=== PATIENT | female | born 1990 | race Caucasian/White ===

== ENCOUNTER 2021-06-17 11:29 | Inpatient (IN) ==
[2021-06-17] MEDS ORDERED: NOREPINEPHRINE 4 MG/4 ML VIAL IV ONE (11:42)
[2021-06-17] MEDS ORDERED: SODIUM CHLORIDE 0.9% 1,000 ML IV STA (11:45)
[2021-06-17] MEDS ORDERED: LACTATED RINGERS 1,000 ML IV ONE (11:45)
[2021-06-17] MEDS: NOREPINEPHRINE 8 MG in SODIUM CHLORIDE 0.9% 242 ML IV PRN (11:46)
[2021-06-17 11:48] LABS: ABG Base Excess -27.3 MMOL/L (-2.5-2.5); ABG HCO3 6.7 MMOL/L (20-26); ABG Oxygen Saturation 98.5 % (95-100); ABG PCO2 53.9 MM HG (35-48)
[2021-06-17] MEDS ORDERED: SODIUM BICARBONATE 50 MEQ/50 ML VIAL IV ONE ×2 (11:52→11:53)
[2021-06-17] MEDS ORDERED: SODIUM BICARBONATE 50 MEQ/50 ML VIAL IV STA (11:55)
[2021-06-17 11:59] LABS: Basophils # 0.1 10*3/uL (0.0-0.2); Basophils % 0.9 % (0.0-0.8); Eosinophils % 0.4 % (0.00-10.9); Hematocrit 45.1 VOL% (35.7-47.0); Hemoglobin 13.7 GM/DL (12.0-16.0); Immature Granulocytes % 1.7 %; Immature Granulocytes Absolute 0.17 #; Lymphocytes # 4.3 10*3/uL (1.4-4.0); Lymphocytes % 42.8 % (21.3-54.2); Mean Corpuscular HGB Conc 30.4 GM/DL (32-36); Mean Corpuscular Volume 106.1 FL (87-102); Mean Platelet Volume 11.9 FL (9.6-12.0); Monocytes % 6.2 % (1.7-12.7); Platelet Count 311 T/CUMM (130-400); Red Blood Count 4.25 MC/CUMM (3.8-5.5); Red Cell Distribution Width 12.1 % (9.3-17.3); White Blood Count 9.9 T/CUMM (4-12)
[2021-06-17] MEDS ORDERED: MANNITOL 100 GM/500 ML BAG IV STA (12:25)
[2021-06-17 12:37] LABS: Atypical Lymphocytes Few
[2021-06-17 12:41] LABS: Alanine Aminotransferase 821 U/L (13-56); Albumin 4.2 G/DL (3.4-5.0); Alkaline Phosphatase 78 U/L (45-117); Aspartate Amino Transferase 1073 U/L (0-37); Blood Urea Nitrogen 21 MG/DL (7-18); Carbon Dioxide 9 MMOL/L (21-32); Estimated Glom Filtration Rate 36 ML/MIN; Glucose 197 MG/DL (74-106); Osmolality,Calculated 290.1 MOS/KG (273-304); Potassium 4.3 MMOL/L (3.5-5.1); Sodium 142 MMOL/L (136-145); Total Protein 7.7 G/DL (6.4-8.2)
[2021-06-17 13:11] LABS: INR 1.3; PT Patient Result 14.7 SECS (10.5-12.0); Partial Thromboplastin Time 28.3 SECS (23.9-33.8)
[2021-06-17 13:17] LABS: Barbiturates Screen,Urine Negative (Negative); Benzodiazepines Screen,Urine Negative (Negative); Cannabinoid Screen,Urine Positive (Negative); Opiate Screen,Urine Negative (Negative); Phencyclidine Screen,Urine Negative (Negative)
[2021-06-17] MEDS ORDERED: ALBUTEROL 2.5 MG/3 ML NEB RESP TX PRN (13:53)
[2021-06-17] MEDS ORDERED: ONDANSETRON 4 MG/2 ML VIAL IV PRN (13:53)
[2021-06-17] MEDS ORDERED: SODIUM CHLORIDE 0.9% 1,000 ML IV SCH (14:00)
[2021-06-17 14:22] VITALS: BP 130/80
[2021-06-17] MEDS ORDERED: CISATRACURIUM 200 MG in SODIUM CHLORIDE 0.9% 180 ML IV PRN (15:31)
[2021-06-17 15:45] LABS: CKMB % 2.8 %
[2021-06-17] MEDS ORDERED: HEPARIN/NACL 0.9% 2 UNITS/ML 1,000 UNIT/500 ML BAG IV ONE (15:46)
[2021-06-17 15:52] LABS: INR 1.3; PT Patient Result 14.3 SECS (10.5-12.0); Partial Thromboplastin Time 25.8 SECS (23.9-33.8)
[2021-06-17] MEDS: fentaNYL INJ 1,250 MCG in SODIUM CHLORIDE 0.9% 225 ML IV PRN (16:00)
[2021-06-17] MEDS: MIDAZOLAM 100 MG in SODIUM CHLORIDE 0.9% 80 ML IV SCH (16:00)
[2021-06-17] MEDS: VALPROIC ACID INJ 500 MG in SODIUM CHLORIDE 0.9% 100 ML IV SCH (16:13)
[2021-06-17 16:48] LABS: Bilirubin,Urine Negative (Negative); Blood, Urine Large mg/dL (Negative); Glucose,Urine (UA) 50 mg/dL (Negative); Ketones,Urine 20 mg/dL (Negative); Mucus,Urine Occasional /LPF (Occasional); Nitrite,Urine Negative (Negative); Protein,Urine 30 MG/DL; RBC,Urine 6 /HPF (0-4); Urine Appearance CLEAR (Clear); Urine Color Straw (Yellow); Urine Specific Gravity 1.027 (1.001-1.035); Urine Urobilinogen < 2.0 EU/DL (0.2-1.0)
[2021-06-17] MEDS: DEXAMETHASONE 4 MG/1 ML VIAL IV SCH ×2 (16:49→21:09)
[2021-06-17] MEDS: PANTOPRAZOLE 40 MG VIAL IV SCH (16:49)
[2021-06-17] MEDS ORDERED: INFLUENZA VIRUS VACCINE 0.5 ML SYRINGE IM ONE (17:01)
[2021-06-17] MEDS: INSULIN REGULAR 100 UNIT/ML IV SCH ×2 (17:05→21:00)
[2021-06-17] MEDS: SODIUM CHLORIDE 0.9% 1,000 ML IV SCH (19:50)
[2021-06-17 20:34] LABS: Basophils # 0.1 10*3/uL (0.0-0.2); Basophils % 0.3 % (0.0-0.8); Hemoglobin 14.2 GM/DL (12.0-16.0); Immature Granulocytes % 0.9 %; Immature Granulocytes Absolute 0.34 #; Lymphocytes # 0.9 10*3/uL (1.4-4.0); Lymphocytes % 2.3 % (21.3-54.2); Mean Corpuscular HGB Conc 32.3 GM/DL (32-36); Mean Corpuscular Volume 96.3 FL (87-102); Mean Platelet Volume 10.9 FL (9.6-12.0); Monocytes % 4.7 % (1.7-12.7); Neutrophils % 91.8 % (38.7-73.9); Platelet Count 324 T/CUMM (130-400); Red Blood Count 4.57 MC/CUMM (3.8-5.5); Red Cell Distribution Width 12.4 % (9.3-17.3); White Blood Count 38.5 T/CUMM (4-12)
[2021-06-17 21:01] LABS: Band Neutrophils 8 % (0-10); Burr Cells Slight; Lymphocytes 4 % (20-55); Segmented Neutrophils 85 % (50-85); Total Cells Counted 100
[2021-06-17 21:02] LABS: CKMB % 3.1 %; Osmolality,Calculated 295.7 MOS/KG (273-304); Ovalocytes Slight; Potassium 3.6 MMOL/L (3.5-5.1)
[2021-06-17 21:04] LABS: Platelet Estimate Adequate
[2021-06-17 21:07] LABS: INR 1.6; PT Patient Result 17.2 SECS (10.5-12.0); Partial Thromboplastin Time 27.9 SECS (23.9-33.8)
[2021-06-17] MEDS ORDERED: hydrALAZINE 20 MG/1 ML VIAL IV ONE (21:15)
[2021-06-17] MEDS: ENOXAPARIN 40 MG/0.4 ML SYRINGE SUBCUT SCH (21:28)
[2021-06-17] MEDS ORDERED: SODIUM CHLORIDE 0.9% IV SCH (23:00)
[2021-06-17] MEDS ORDERED: MANNITOL IV SCH (23:00)
[2021-06-18] MEDS: INSULIN REGULAR 100 UNIT/ML IV SCH ×8 (00:42→22:47)
[2021-06-18] MEDS: VALPROIC ACID INJ 500 MG in SODIUM CHLORIDE 0.9% 100 ML IV SCH ×2 (03:08→16:44)
[2021-06-18] MEDS: DEXAMETHASONE 4 MG/1 ML VIAL IV SCH ×4 (03:08→21:14)
[2021-06-18 03:35] LABS: Basophils % 0.1 % (0.0-0.8); Hematocrit 42.4 VOL% (35.7-47.0); Hemoglobin 14.2 GM/DL (12.0-16.0); Immature Granulocytes % 0.6 %; Immature Granulocytes Absolute 0.15 #; Lymphocytes # 0.9 10*3/uL (1.4-4.0); Lymphocytes % 3.4 % (21.3-54.2); Mean Corpuscular HGB Conc 33.5 GM/DL (32-36); Mean Corpuscular Volume 95.9 FL (87-102); Mean Platelet Volume 10.8 FL (9.6-12.0); Neutrophils % 92.9 % (38.7-73.9); Platelet Count 263 T/CUMM (130-400); Red Blood Count 4.42 MC/CUMM (3.8-5.5); Red Cell Distribution Width 12.6 % (9.3-17.3); White Blood Count 24.7 T/CUMM (4-12)
[2021-06-18 03:49] LABS: INR 1.7; PT Patient Result 18.2 SECS (10.5-12.0); Partial Thromboplastin Time 32.9 SECS (23.9-33.8)
[2021-06-18 03:59] LABS: Osmolality,Calculated 304.1 MOS/KG (273-304); Potassium 3.4 MMOL/L (3.5-5.1)
[2021-06-18 04:02] LABS: CKMB % 3.7 %; High Sensitive Troponin I* 2698.2 ng/L (0-54)
[2021-06-18 04:09] LABS: Band Neutrophils 2 % (0-10); Lymphocytes 4 % (20-55); Platelet Estimate Adequate; Segmented Neutrophils 90 % (50-85); Total Cells Counted 100
[2021-06-18] MEDS ORDERED: NOREPINEPHRINE 4 MG/4 ML VIAL IV ONE (04:20)
[2021-06-18] MEDS: NOREPINEPHRINE 8 MG in SODIUM CHLORIDE 0.9% 242 ML IV PRN ×2 (04:25→17:36)
[2021-06-18 04:53] LABS: ABG Base Excess -9.3 MMOL/L (-2.5-2.5); ABG HCO3 17.2 MMOL/L (20-26); ABG Oxygen Saturation 99.6 % (95-100); ABG PCO2 34.6 MM HG (35-48); ABG PH 7.289 (7.35-7.45); ABG TCO2 14.5 MMOL/L (23-27)
[2021-06-18] MEDS: MANNITOL IV SCH ×4 (05:12→21:14)
[2021-06-18] MEDS: POTASSIUM CHLORIDE RIDER 20 MEQ/100 ML PREMIX IV PRN ×2 (05:24→11:06)
[2021-06-18] MEDS: SODIUM CHLORIDE 0.9% 1,000 ML IV SCH ×2 (06:15→16:30)
[2021-06-18 09:49] LABS: Basophils # 0.1 10*3/uL (0.0-0.2); Basophils % 0.2 % (0.0-0.8); Hematocrit 42.8 VOL% (35.7-47.0); Hemoglobin 14.1 GM/DL (12.0-16.0); Immature Granulocytes % 0.8 %; Immature Granulocytes Absolute 0.29 #; Lymphocytes # 1.3 10*3/uL (1.4-4.0); Lymphocytes % 3.9 % (21.3-54.2); Mean Corpuscular HGB Conc 32.9 GM/DL (32-36); Mean Corpuscular Volume 95.3 FL (87-102); Mean Platelet Volume 10.8 FL (9.6-12.0); Monocytes % 2.1 % (1.7-12.7); Platelet Count 308 T/CUMM (130-400); Red Blood Count 4.49 MC/CUMM (3.8-5.5); Red Cell Distribution Width 12.7 % (9.3-17.3); White Blood Count 34.5 T/CUMM (4-12)
[2021-06-18 10:04] LABS: Calcium 8.3 MG/DL (8.5-10.1); Osmolality,Calculated 316.2 MOS/KG (273-304)
[2021-06-18 10:12] LABS: Band Neutrophils 5 % (0-10); Lymphocytes 6 % (20-55); Platelet Estimate Adequate; Segmented Neutrophils 88 % (50-85); Total Cells Counted 100
[2021-06-18 10:13] LABS: CKMB % 5.1 %
[2021-06-18 10:14] LABS: High Sensitive Troponin I* 2087.1 ng/L (0-54)
[2021-06-18 10:49] LABS: INR 1.5; PT Patient Result 16.7 SECS (10.5-12.0); Partial Thromboplastin Time 32.4 SECS (23.9-33.8)
[2021-06-18] MEDS ORDERED: POTASSIUM CHLORIDE RIDER 10 MEQ/100 ML PREMIX IV PRN (11:08)
[2021-06-18] MEDS: PANTOPRAZOLE 40 MG VIAL IV SCH (15:04)
[2021-06-18] MEDS ORDERED: EPINEPHrine 1 MG/10 ML SYRINGE ONE (15:14)
[2021-06-18 16:00] LABS: Basophils # 0.1 10*3/uL (0.0-0.2); Basophils % 0.1 % (0.0-0.8); Eosinophils # 0.1 10*3/uL (0.0-0.87); Eosinophils % 0.2 % (0.00-10.9); Hematocrit 39.4 VOL% (35.7-47.0); Hemoglobin 13.1 GM/DL (12.0-16.0); Immature Granulocytes Absolute 0.36 #; Lymphocytes # 2.1 10*3/uL (1.4-4.0); Lymphocytes % 5.9 % (21.3-54.2); Mean Corpuscular HGB Conc 33.2 GM/DL (32-36); Mean Corpuscular Volume 94.9 FL (87-102); Mean Platelet Volume 11.3 FL (9.6-12.0); Monocytes % 3.6 % (1.7-12.7); Neutrophils % 89.2 % (38.7-73.9); Platelet Count 318 T/CUMM (130-400); Red Blood Count 4.15 MC/CUMM (3.8-5.5); Red Cell Distribution Width 12.8 % (9.3-17.3); White Blood Count 35.2 T/CUMM (4-12)
[2021-06-18 16:11] LABS: INR 1.6; PT Patient Result 17.3 SECS (10.5-12.0); Partial Thromboplastin Time 31.8 SECS (23.9-33.8)
[2021-06-18 16:23] LABS: Calcium 8.1 MG/DL (8.5-10.1); Osmolality,Calculated 324.7 MOS/KG (273-304); Potassium 3.5 MMOL/L (3.5-5.1)
[2021-06-18] MEDS: MIDAZOLAM 100 MG in SODIUM CHLORIDE 0.9% 80 ML IV SCH (16:29)
[2021-06-18 16:30] LABS: Band Neutrophils 19 % (0-10); Metamyelocytes 1 %; Segmented Neutrophils 79 % (50-85); Total Cells Counted 100
[2021-06-18 16:31] LABS: Anisocytosis Slight; Burr Cells Few; Macrocytosis Slight; Poikilocytosis Few
[2021-06-18 16:32] LABS: CKMB % 6.1 %; High Sensitive Troponin I* 1747.8 ng/L (0-54); Platelet Estimate Normal
[2021-06-18 17:31] LABS: ABG Base Excess -11.3 MMOL/L (-2.5-2.5); ABG HCO3 15.7 MMOL/L (20-26); ABG Oxygen Saturation 99.6 % (95-100); ABG PCO2 22.5 MM HG (35-48); ABG PH 7.355 (7.35-7.45)
[2021-06-18] MEDS ORDERED: ACETAMINOPHEN 325 MG/10.15 ML UDCUP NG PRN (17:41)
[2021-06-18 17:50] LABS: Bilirubin,Total 0.4 MG/DL (0.20-1.00); Calcium 8.2 MG/DL (8.5-10.1); Osmolality,Calculated 330.3 MOS/KG (273-304); Total Protein 5.6 G/DL (6.4-8.2)
[2021-06-18 17:54] LABS: Potassium 2.4 MMOL/L (3.5-5.1)
[2021-06-18] MEDS: POTASSIUM CHLORIDE RIDER 20 MEQ/100 ML PREMIX IV SCH ×3 (18:26→23:41)
[2021-06-18] MEDS: DEXTROSE 5% 1,000 ML IV SCH (18:27)
[2021-06-18 21:10] LABS: Basophils # 0.1 10*3/uL (0.0-0.2); Basophils % 0.1 % (0.0-0.8); Eosinophils # 0.1 10*3/uL (0.0-0.87); Eosinophils % 0.1 % (0.00-10.9); Hematocrit 37.7 VOL% (35.7-47.0); Hemoglobin 12.5 GM/DL (12.0-16.0); Immature Granulocytes % 0.9 %; Immature Granulocytes Absolute 0.31 #; Lymphocytes # 2.5 10*3/uL (1.4-4.0); Lymphocytes % 7.5 % (21.3-54.2); Mean Corpuscular HGB Conc 33.2 GM/DL (32-36); Mean Corpuscular Volume 95.2 FL (87-102); Mean Platelet Volume 11.4 FL (9.6-12.0); Monocytes % 4.1 % (1.7-12.7); Neutrophils % 87.3 % (38.7-73.9); Platelet Count 304 T/CUMM (130-400); Red Blood Count 3.96 MC/CUMM (3.8-5.5); White Blood Count 33.7 T/CUMM (4-12)
[2021-06-18] MEDS: ENOXAPARIN 40 MG/0.4 ML SYRINGE SUBCUT SCH (21:14)
[2021-06-18 21:23] LABS: Calcium 8.3 MG/DL (8.5-10.1); Osmolality,Calculated 335.2 MOS/KG (273-304); Potassium 2.9 MMOL/L (3.5-5.1)
[2021-06-18 21:30] LABS: INR 1.5; PT Patient Result 16.9 SECS (10.5-12.0); Partial Thromboplastin Time 32.2 SECS (23.9-33.8)
[2021-06-18 22:16] LABS: Band Neutrophils 3 % (0-10); Lymphocytes 9 % (20-55); Segmented Neutrophils 86 % (50-85); Total Cells Counted 100
[2021-06-18 22:18] LABS: Burr Cells 2+; Hypochromasia Slight; Platelet Estimate Normal; Reactive Lymphocytes 1+
[2021-06-19] MEDS: fentaNYL INJ 1,250 MCG in SODIUM CHLORIDE 0.9% 225 ML IV PRN (00:25)
[2021-06-19] MEDS: INSULIN REGULAR 100 UNIT/ML IV SCH ×4 (00:44→06:36)
[2021-06-19] MEDS: NOREPINEPHRINE 8 MG in SODIUM CHLORIDE 0.9% 242 ML IV PRN ×3 (01:30→16:09)
[2021-06-19] MEDS: DEXAMETHASONE 4 MG/1 ML VIAL IV SCH ×4 (02:40→20:40)
[2021-06-19] MEDS: DEXTROSE 5% 1,000 ML IV SCH ×5 (02:40→23:00)
[2021-06-19 03:36] LABS: ABG Base Excess -8.8 MMOL/L (-2.5-2.5); ABG HCO3 13.8 MMOL/L (20-26); ABG Oxygen Saturation 98.8 % (95-100); ABG PCO2 22.1 MM HG (35-48); ABG PH 7.413 (7.35-7.45); ABG PO2 273.1 MM HG (80-95); ABG TCO2 14.5 MMOL/L (23-27)
[2021-06-19 03:38] LABS: Basophils # 0.1 10*3/uL (0.0-0.2); Basophils % 0.2 % (0.0-0.8); Eosinophils % 0.1 % (0.00-10.9); Hematocrit 36.8 VOL% (35.7-47.0); Hemoglobin 12.2 GM/DL (12.0-16.0); Immature Granulocytes % 1.3 %; Immature Granulocytes Absolute 0.51 #; Lymphocytes # 2.5 10*3/uL (1.4-4.0); Lymphocytes % 6.6 % (21.3-54.2); Mean Corpuscular HGB Conc 33.2 GM/DL (32-36); Mean Corpuscular Volume 95.6 FL (87-102); Mean Platelet Volume 11.9 FL (9.6-12.0); Neutrophils % 87.8 % (38.7-73.9); Platelet Count 278 T/CUMM (130-400); Red Blood Count 3.85 MC/CUMM (3.8-5.5); Red Cell Distribution Width 13.2 % (9.3-17.3)
[2021-06-19 03:46] LABS: INR 1.6; PT Patient Result 17.2 SECS (10.5-12.0); Partial Thromboplastin Time 37.3 SECS (23.9-33.8)
[2021-06-19 03:52] LABS: Calcium 8.4 MG/DL (8.5-10.1); Osmolality,Calculated 330.2 MOS/KG (273-304); Potassium 3.1 MMOL/L (3.5-5.1)
[2021-06-19 04:02] LABS: Alanine Aminotransferase 523 U/L (13-56); Albumin 2.6 G/DL (3.4-5.0); Alkaline Phosphatase 68 U/L (45-117); Aspartate Amino Transferase 345 U/L (0-37); Bilirubin,Indirect 0.3 MG/DL (0.0-1.0); Bilirubin,Total < 0.39 MG/DL (0.20-1.00); Total Protein 5.3 G/DL (6.4-8.2)
[2021-06-19 04:08] LABS: Band Neutrophils 3 % (0-10); Hypochromasia Slight; Lymphocytes 7 % (20-55); Platelet Estimate Adequate; Segmented Neutrophils 86 % (50-85); Total Cells Counted 100
[2021-06-19 04:09] LABS: Burr Cells Few
[2021-06-19] MEDS: VALPROIC ACID INJ 500 MG in SODIUM CHLORIDE 0.9% 100 ML IV SCH ×2 (04:47→15:39)
[2021-06-19 07:04] LABS: CKMB % 8.4 %
[2021-06-19 07:06] LABS: High Sensitive Troponin I* 1393.9 ng/L (0-54)
[2021-06-19] MEDS ORDERED: INSULIN REGULAR 100 UNIT/ML IV SCH (08:00)
[2021-06-19] MEDS: INSULIN REGULAR 100 UNIT/ML SUBCUT SCH ×4 (08:02→20:40)
[2021-06-19] MEDS ORDERED: POTASSIUM PHOSPHATE 30 MMOL in SODIUM CHLORIDE 0.9% 250 ML IV ONE (08:35)
[2021-06-19 08:46] LABS: ABG HCO3 20.3 MMOL/L (20-26); ABG Oxygen Saturation 99.8 % (95-100); ABG PCO2 25.6 MM HG (35-48); ABG PH 7.445 (7.35-7.45); ABG TCO2 15.5 MMOL/L (23-27)
[2021-06-19] MEDS: MANNITOL IV SCH ×2 (09:18→20:45)
[2021-06-19 13:51] LABS: Alanine Aminotransferase 472 U/L (13-56); Albumin 2.6 G/DL (3.4-5.0); Alkaline Phosphatase 80 U/L (45-117); Aspartate Amino Transferase 225 U/L (0-37); Bilirubin,Total < 0.39 MG/DL (0.20-1.00); Blood Urea Nitrogen 15 MG/DL (7-18); Calcium 7.9 MG/DL (8.5-10.1); Carbon Dioxide 21 MMOL/L (21-32); Estimated Glom Filtration Rate 41 ML/MIN; Glucose 248 MG/DL (74-106); Osmolality,Calculated 330.2 MOS/KG (273-304); Total Protein 5.6 G/DL (6.4-8.2)
[2021-06-19 14:01] LABS: Sodium 163 MMOL/L (136-145)
[2021-06-19] MEDS: PANTOPRAZOLE 40 MG VIAL IV SCH (15:50)
[2021-06-19] MEDS: ENOXAPARIN 40 MG/0.4 ML SYRINGE SUBCUT SCH (20:40)
[2021-06-20] MEDS: INSULIN REGULAR 100 UNIT/ML SUBCUT SCH ×5 (00:30→17:27)
[2021-06-20] MEDS: VALPROIC ACID INJ 500 MG in SODIUM CHLORIDE 0.9% 100 ML IV SCH ×2 (03:10→15:33)
[2021-06-20] MEDS: DEXAMETHASONE 4 MG/1 ML VIAL IV SCH ×3 (03:14→15:34)
[2021-06-20 04:20] LABS: ABG Base Excess -3.5 MMOL/L (-2.5-2.5); ABG HCO3 21.5 MMOL/L (20-26); ABG Oxygen Saturation 99.4 % (95-100); ABG PCO2 32.8 MM HG (35-48); ABG PH 7.402 (7.35-7.45); ABG TCO2 18.3 MMOL/L (23-27)
[2021-06-20 04:35] LABS: Basophils # 0.1 10*3/uL (0.0-0.2); Basophils % 0.2 % (0.0-0.8); Hematocrit 34.1 VOL% (35.7-47.0); Immature Granulocytes % 5.5 %; Immature Granulocytes Absolute 1.99 #; Lymphocytes # 1.1 10*3/uL (1.4-4.0); Mean Corpuscular HGB Conc 32.3 GM/DL (32-36); Mean Corpuscular Volume 97.2 FL (87-102); Monocytes % 3.7 % (1.7-12.7); Neutrophils % 87.6 % (38.7-73.9); Platelet Count 166 T/CUMM (130-400); Red Blood Count 3.51 MC/CUMM (3.8-5.5); Red Cell Distribution Width 13.6 % (9.3-17.3); White Blood Count 36.4 T/CUMM (4-12)
[2021-06-20 04:36] LABS: Calcium 7.9 MG/DL (8.5-10.1); Osmolality,Calculated 339.5 MOS/KG (273-304); Potassium 3.9 MMOL/L (3.5-5.1)
[2021-06-20] MEDS: DEXTROSE 5% 1,000 ML IV SCH ×3 (04:36→16:52)
[2021-06-20 04:43] LABS: Alanine Aminotransferase 360 U/L (13-56); Albumin 2.4 G/DL (3.4-5.0); Alkaline Phosphatase 81 U/L (45-117); Aspartate Amino Transferase 120 U/L (0-37); Bilirubin,Direct < 0.100 MG/DL (0.0-0.20); Bilirubin,Indirect 0.3 MG/DL (0.0-1.0); Bilirubin,Total < 0.39 MG/DL (0.20-1.00); Total Protein 5.4 G/DL (6.4-8.2)
[2021-06-20 04:53] LABS: Band Neutrophils 6 % (0-10); Lymphocytes 3 % (20-55); Platelet Estimate Adequate; Segmented Neutrophils 89 % (50-85); Total Cells Counted 100
[2021-06-20] MEDS ORDERED: MANNITOL IV SCH ×2 (09:00→10:00)
[2021-06-20] MEDS: MANNITOL IV SCH (10:03)
[2021-06-20] MEDS: PANTOPRAZOLE 40 MG VIAL IV SCH (13:38)
[2021-06-20 16:22] LABS: ABG Base Excess -2.8 MMOL/L (-2.5-2.5); ABG HCO3 22.1 MMOL/L (20-26); ABG Oxygen Saturation 98.5 % (95-100); ABG PCO2 33.1 MM HG (35-48); ABG PH 7.412 (7.35-7.45)
[2021-06-20 16:25] LABS: Basophils % 0.1 % (0.0-0.8); Hematocrit 32.6 VOL% (35.7-47.0); Hemoglobin 10.8 GM/DL (12.0-16.0); Immature Granulocytes % 1.6 %; Immature Granulocytes Absolute 0.52 #; Lymphocytes # 1.4 10*3/uL (1.4-4.0); Lymphocytes % 4.3 % (21.3-54.2); Mean Corpuscular HGB Conc 33.1 GM/DL (32-36); Mean Corpuscular Volume 96.7 FL (87-102); Mean Platelet Volume 12.1 FL (9.6-12.0); Monocytes % 3.7 % (1.7-12.7); Neutrophils % 90.3 % (38.7-73.9); Platelet Count 134 T/CUMM (130-400); Red Blood Count 3.37 MC/CUMM (3.8-5.5); Red Cell Distribution Width 13.8 % (9.3-17.3); White Blood Count 32.9 T/CUMM (4-12)
[2021-06-20 16:47] LABS: Alanine Aminotransferase 289 U/L (13-56); Albumin 2.3 G/DL (3.4-5.0); Alkaline Phosphatase 90 U/L (45-117); Amylase 32 U/L (25-115); Aspartate Amino Transferase 103 U/L (0-37); Bilirubin,Total < 0.39 MG/DL (0.20-1.00); Blood Urea Nitrogen 9 MG/DL (7-18); Calcium 8.2 MG/DL (8.5-10.1); Carbon Dioxide 21 MMOL/L (21-32); Estimated Glom Filtration Rate 60 ML/MIN; Gamma Glutamyl Transpeptidase 22 U/L (5-85); Glucose 266 MG/DL (74-106); Osmolality,Calculated 329.2 MOS/KG (273-304); Potassium 3.5 MMOL/L (3.5-5.1); Total Protein 5.3 G/DL (6.4-8.2)
[2021-06-20 16:54] LABS: Sodium 163 MMOL/L (136-145)
[2021-06-20] MEDS ORDERED: ALBUMIN 5% 12.5 GM/250 ML VIAL IV ONE ×3 (17:00→20:11)
[2021-06-20] MEDS ORDERED: VANCOMYCIN INJ 1,000 MG in SODIUM CHLORIDE 0.9% 250 ML IV ONE (17:25)
[2021-06-20] MEDS ORDERED: metroNIDAZOLE INJ 500 MG/100 ML PREMIX IV ONE (17:25)
[2021-06-20] MEDS ORDERED: CEFEPIME 1,000 MG in SODIUM CHLORIDE 0.9% 100 ML IV SCH (17:30)
[2021-06-20] MEDS ORDERED: POTASSIUM BICARB EFFERVESCENT 20 MEQ TAB.EFF PER TUBE PRN (17:32)
[2021-06-20 17:54] LABS: ABG Base Excess -2.9 MMOL/L (-2.5-2.5); ABG Oxygen Saturation 98.5 % (95-100); ABG TCO2 18.3 MMOL/L (23-27)
[2021-06-20 18:24] LABS: ABG Base Excess -3.3 MMOL/L (-2.5-2.5); ABG HCO3 21.7 MMOL/L (20-26); ABG Oxygen Saturation 99.9 % (95-100); ABG PCO2 30.3 MM HG (35-48); ABG PH 7.431 (7.35-7.45); ABG TCO2 18.4 MMOL/L (23-27)
[2021-06-20 19:43] LABS: ABG Base Excess -4.3 MMOL/L (-2.5-2.5); ABG HCO3 20.1 MMOL/L (20-26); ABG Oxygen Saturation 96.6 % (95-100); ABG PCO2 34.6 MM HG (35-48); ABG PH 7.383 (7.35-7.45); ABG PO2 96.5 MM HG (80-95); ABG TCO2 21.2 MMOL/L (23-27)
[2021-06-20 19:48] LABS: Band Neutrophils 4 % (0-10); Lymphocytes 2 % (20-55); Segmented Neutrophils 92 % (50-85); Total Cells Counted 100
[2021-06-20 19:57] LABS: Platelet Estimate Normal
[2021-06-20 19:59] LABS: Ovalocytes Slight
[2021-06-20 20:01] LABS: Burr Cells Few
[2021-06-20] MEDS ORDERED: ALBUMIN 5% 25 GM/500 ML VIAL IV ONE (20:52)
[2021-06-20] MEDS ORDERED: SODIUM CHLOR 0.45% KCL 20 MEQ 20 MEQ/1,000 ML BAG IV SCH (21:30)
[2021-06-21] MEDS: DEXAMETHASONE 4 MG/1 ML VIAL IV SCH (00:02)
[2021-06-21] MEDS: INSULIN REGULAR 100 UNIT/ML SUBCUT SCH ×2 (00:02→00:03)
[2021-06-21] MEDS: DEXTROSE 5% 1,000 ML IV SCH (00:03)
[2021-06-21] MEDS: ENOXAPARIN 40 MG/0.4 ML SYRINGE SUBCUT SCH (00:03)
== END 2021-06-20 14:00 | disposition expired | DRG 922 ==
LOC: N.ED 11:29 → N.EDINP 13:47 → SUATTDRO 13:47 → N.ICU 14:25
PROVIDERS: ADMIT Internal Medicine; ATTEND Family Medicine